=== PATIENT | male | born 1990 | race Caucasian/White ===

== ENCOUNTER 2016-11-13 23:00 | Inpatient (IN) | payer OTHER ==
[~2016-11-13] VITALS: Ht 177.8 cm; Wt 63.0 kg
--- NOTE | ~2016-11-13 | PN ---
Unit #: [id number] #: [id number] Patient: LARRY VILLAFANA [id number] [facility] [address] [place] [address] [id number] I MR#: [id number] NAME: LARRY VILLAFANA ROOM: 81 Age: 26 Sex: M Admission Date: 11/14/2016 : 1990 Attending Physician: Rajinder Crockett M.D. Admitting Physician: Rajinder Crockett M.D. Primary Care Physician: Primary Care Physician Betsy GOMEZ NOTES DATE November 15, 2016 DISCUSSION Mr. Villafana is a 26-year-old white male, with history of substance abuse and mood disorder, who was seen today and chart was reviewed and the case was discussed with the staff. He was lying in bed and reports not feeling good and has been complaining of persistent anxiety and depression, and disturbed sleep, restless, muscle aches and pains. Meanwhile, he has been taking the medications and tolerating them fairly well with no reported side effects. MENTAL STATUS EXAMINATION Young white male, who was casually dressed with fair personal hygiene and appears to be in no acute distress or discomfort. He was awake and alert with intact orientation. His mood is anxious with a congruent affect. His speech is slow and goal-directed. He denies any suicidal or homicidal ideations, and also denies any auditory or visual hallucinations. His insight and judgment remain slightly impaired. TREATMENT PLAN 1. We will continue him on his current medications and treatment protocol, and will monitor his response to the medications, and make further adjustments as needed. 2. We will continue to followup. Dictated by... Tanisha Saleh/karlene TD: 11/16/2016 05:49 JOB #: [id number] Unit #: [id number] #: [id number] Patient: LARRY VILLAFANA KAREL GOMEZ NOTES Page 1 of 1 X Rajinder Crockett MD PROGRESS NOTE
--- NOTE | ~2016-11-13 | PN ---
Unit #: [id number] #: [id number] Patient: LARRY VILLAFANA [id number] [facility] [address] [place] [address] [id number] I MR#: [id number] NAME: LARRY VLILAFANA ROOM: 81 Age: 26 Sex: M Admission Date: 11/14/2016 : 1990 Attending Physician: Rajinder Crockett M.D. Admitting Physician: Rajinder Crockett M.D. Primary Care Physician: Primary Care Physician Betsy VINSON PROGRESS NOTES DATE OF SERVICE 11/16/2016 DISCUSSION Mr. Villafana is a 26-year-old white male with substance abuse and mood disorder who was seen today. Chart was reviewed and case was discussed with the staff. He has been anxious, withdrawn, and rather seclusive to himself. Meanwhile, he has been cooperative with the treatment recommendations and has been taking the medications and tolerating them fairly well with no reported side effects. MENTAL STATUS EXAMINATION Young white male who is casually dressed with fair personal hygiene, appears to be in no acute distress or discomfort. He was awake and alert on interaction with intact orientation. His mood is anxious with congruent affect. Speech is slow and goal-directed. He denies any suicidal or homicidal ideations. His insight and judgment remain slightly impaired. TREATMENT PLAN 1. We will continue him on his current medications and treatment protocol. We will monitor his response to the medications and make further adjustments as needed. 2. We will continue to follow up. Dictated by... Tanisha Saleh/georgi TD: 11/16/2016 12:44 JOB #: [id number] Unit #: [id number] #: [id number] Patient: LARRY VILLAFANA KAREL PROGRESS NOTES Page 1 of 1 X Rajinder Crockett MD PROGRESS NOTE
--- NOTE | ~2016-11-13 | PN ---
Unit #: [id number] #: [id number] Patient: LARRY VILLAFANA [id number] [facility] [address] [place] [address] [id number] I MR#: [id number] NAME: LARRY VILLAFANA ROOM: 81 Age: 26 Sex: M Admission Date: 11/14/2016 : 1990 Attending Physician: Rajinder Crockett M.D. Admitting Physician: Rajinder Crockett M.D. Primary Care Physician: Primary Care Physician Betsy GOMEZ NOTES DATE OF SERVICE 11/17/2016 DISCUSSION Mr. Villafana is a 26-year-old white male with substance abuse and mood disorder who was seen today. Chart was reviewed and case was discussed with the staff. He appears to be doing somewhat better and has been able to come out of his room and interacting with peers. Meanwhile, he has been taking the medications and tolerating them fairly well with no reported side effects. MENTAL STATUS EXAMINATION Young white male who is casually dressed with fair personal hygiene, appears to be in no acute distress or discomfort. He was awake and alert on interaction with intact orientation. His mood is anxious with a congruent affect. He denies any suicidal or homicidal ideation. His insight and judgment remain slightly impaired. TREATMENT PLAN 1. We will continue him on his current medications and treatment protocol. We will monitor his response to the medications and make further adjustments as needed. 2. We will continue to follow up. Dictated by... Tanisha Saleh/bzg TD: 11/17/2016 11:39 JOB #: [id number] Unit #: [id number] #: [id number] Patient: LARRY VILLAFANA KAREL PROGRESS NOTES Page 1 of 1 X Rajinder Crockett MD PROGRESS NOTE
--- NOTE | ~2016-11-13 | A ---
[facility] Nutrition Therapy DATE: 11/15/16 Patient: LARRY VILLAFANA Physician: CHELLE Address: [address] [place] [address] Room/Bed: [address], Zip: [place] [address] Admit Date: 11/14/16 Date of : [birth year] Height: 5 10 Weight: [phone] NUTRITIONAL ASSESSMENT: REASON: UNINTENTIONAL WEIGHT LOSS PATIENT ADMITTED FOR HEROIN AND METH DETOX, AND SI PMH: ASTHMA Anthropometrics: HT: 70", WT: 139#, BMI: 19.9, %IBW: 84 Labs: 11/15/16- NUTRITIONAL LABS WNL Meds: VISTARIL, DESYREL, REMERON, MVI, DETOX PROTOCOL Assessment: PATIENT IS A 26 Y/O MALE ADMITTED FOR DETOX AND SI. PATIENT IS CURRENTLY UNEMPLOYED, HOMELESS, CHEWS TOBACCO DAILY, AND HAS DAILY HEROIN, METH, AND XANAX ABUSE. UPON ADMIT PATIENT STATED A POOR APPETITE WITH A 25# WEIGHT LOSS OVER LAST SEVERAL MONTHS, AND HE HAS NOT BEEN SLEEPING. NURSING REPORTS [employer] PO INTAKES. THERE IS NO WEIGHT HX RECORDED IN [employer]. PATIENT HAS NOT HAD ANY PREVIOUS PSYCH OR CHEMICAL DEPENDENCY TREATMENT. PATIENT'S BMI IS WITHIN A HEALTHY RANGE AND HIS NUTRITIONAL LABS ARE ALL WNL. THERE ARE NO SKIN OR GI ISSUES NOTED ATT. PATIENT WAS TAKING AN ANTIBIOTIC PRIOR TO ADMIT FOR A SORE ON HIS FOOT. HE IS CURRENTLY ON A REGULAR DIET. THIS RD SUSPECTS WEIGHT AND APPETITE WILL STABILIZE AND POSSIBLY INCREASE FOLLOWING DETOX. HE IS CURRENTLY ON REMERON, WHICH MAY CAUSE AN INCREASED APPETITE. Dx: UNINTENTIONAL WEIGHT LOSS R/T CURRENT CONDITION, DRUG USE AEB SELF-REPORTED WEIGHT LOSS AND DECREASED APPETITE, NUTRITIONAL RISK POINT Intervention: REGULAR DIET, MEDS PER MD, DETOX, PSYCH Monitoring, Evaluation and Goals: 1. ADEQUATE PO INTAKES >50% OF MEALS 2. CORRECT MICRO/MACRO NUTRIENT DEFICIENCIES 3. WEIGHT; PREVENT WEIGHT LOSS MONITOR: WEIGHTS, LABS, PO/FLUID INTAKES Recommendations: 1. CONTINUE REGULAR DIET TOLERATED. OFFER SNACKS BETWEEN MEALS. IF PATIENT HAS C/O HUNGER PLEASE ORDER LARGER PORTIONS AND RD WILL APPROVE 2. ENCOURAGE ADEQUATE PO AND FLUID INTAKES [facility] Nutrition Therapy DATE: 11/15/16 Patient: LARRY VILLAFANA Physician: CHELLE Address: [address] [place] [address] Room/Bed: [address], [facility], Zip: [place] [address] Admit Date: 11/14/16 Date of : [birth year] Height: 5 10 Weight: [phone] 3. IF PO INTAKES ARE BELOW 50% OF MEALS PLEASE ORDER ENSURE BID 4. OBTAIN WEIGHTS ROUTINELY (EVERY 3-4 DAYS) RD TO F/U PER PROTOCOL AND PRN R/T PATIENT MILDLY COMPROMISED Respectfully, MARY MACDONALD RD, LD [facility] cc: client file
--- NOTE | ~2016-11-13 | DS ---
Unit #: [id number] #: [id number] Patient: LARRY VILLAFANA [id number] [facility] [address] [place] [address] [id number] I MR#: [id number] NAME: LARRY VILLAFANA ROOM: P180 Age: 26 Sex: M Admission Date: 11/14/2016 : 1990 Discharge Date: 11/18/2016 Attending Physician: Rajinder Crockett M.D. Primary Care Physician: Primary Care Physician No DISCHARGE SUMMARY IDENTIFYING DATA Mr. Castillo is a 26-year-old, single, white male, who is a resident of [place], [place] and was self-referred to the hospital on a voluntary basis. DISCHARGE DIAGNOSES Psychiatric: Major depressive disorder, recurrent, moderate, without psychotic features; opioid dependence, moderate and acute withdrawals. Medical: None. Stressors: Mild psychosocial stressors. HISTORY OF PRESENT ILLNESS Please see initial psychiatric evaluation for details. PAST PSYCHIATRIC HISTORY Please see initial psychiatric evaluation for details. PAST MEDICAL HISTORY Please see initial psychiatric evaluation for details. HOSPITAL COURSE The patient [facility] and was oriented to the hospital environment. Routine p.r.n. medications were initiated, and he was started back on his home medications and medications were adjusted and detox protocol was maintained and Remeron was also given to help him with depression. He was initially seen to be anxious, withdrawn, and seclusive to himself and was going through some acute withdrawal symptoms; however, no complications were noticed and the patient was cooperative with treatment recommendations and as such, was able to come out of the detox without any issues and therefore, it was decided the patient will be discharged home and will continue treatment on an outpatient basis. DISCHARGE MEDICATIONS Remeron 15 mg at bedtime for depression. DISCHARGE CONDITION Stable. PROGNOSIS Fair. Unit #: [id number] #: [id number] Patient: LARRY VILLAFANA Dictated by... Tanisha Saleh/dasia TD: 11/18/2016 07:01 JOB #: [id number] DISCHARGE SUMMARY Page 1 of 1 X Rajinder Crockett MD DISCHARGE SUMMARY
--- NOTE | ~2016-11-13 | HP ---
Unit #: [id number] #: [id number] Patient: LARRY VILLAFANA [id number] [place] [address] [id number] I MR#: [id number] NAME: LARRY VILLAFANA ROOM: P181 Age: 26 Sex: M Admission Date: 11/14/2016 : 1990 Attending Physician: Rajinder Crockett M.D. Admitting Physician: Rajinder Crockett M.D. Primary Care Physician: Primary Care Physician No HISTORY AND PHYSICAL HISTORY OF PRESENT ILLNESS The patient is a 26-year-old male admitted to [facility] on 11/13/2016 for heroin and methamphetamine abuse and suicidal ideations. PAST MEDICAL HISTORY Drug abuse. PAST SURGICAL HISTORY None noted. SOCIAL HISTORY He is unemployed and homeless, chews tobacco, uses a 1/2 gram of heroin daily and methamphetamine and Xanax on a daily basis. FAMILY MEDICAL HISTORY Noncontributory. ALLERGIES No known drug allergies. CURRENT MEDICATIONS Doxycycline and Ventolin. REVIEW OF SYSTEMS CONSTITUTIONAL: No fever or chills. HEENT: Denies any sore throat, ear pain or runny nose. CARDIOVASCULAR: Denies chest pain, irregular heart rhythm or palpitations. CHEST: Denies shortness of breath or cough. No hemoptysis. GASTROINTESTINAL: Denies nausea, vomiting, diarrhea or chronic constipation. ENDOCRINE: Denies history of increased thirst or urination. No recent significant weight loss or gain. GENITOURINARY: Denies dysuria, frequency, or hematuria. SKIN: Denies any rashes. HEMATOLOGIC: Denies history of increased bleeding or bruising. MUSCULOSKELETAL: Denies any hot, swollen joints. No generalized muscle pain. NEUROLOGIC: Denies problems with vision or speech. No frequent, severe headaches. No numbness, tingling or weakness in any extremities. Denies loss of bladder or bowel control. PHYSICAL EXAM GENERAL: He is awake, alert and oriented in no acute distress. Unit #: [id number] #: [id number] Patient: LARRY VILLAFANA VITAL SIGNS: Temperature 98.6, heart rate 89, respiration 18, blood pressure 123/89. HEIGHT: 5'10". WEIGHT: 19 pounds. SKIN: Warm and dry without rash or lesion. HEENT: Normocephalic. TMs not viewed. Oral and nasal passages clear. Conjunctivae clear. PERRLA. EOMs intact. NECK: Supple without lymphadenopathy or thyromegaly. HEART: Regular rate and rhythm without murmur. LUNGS: Clear. ABDOMEN: Soft, nontender. : Not done. EXTREMITIES: No evidence of cyanosis, clubbing or edema. Moves all without focal deficit. NEUROLOGICAL: Grossly within normal limits. Cranial Nerves: II: Visual martinez are intact. III, IV AND : Extraocular movements are intact. Pupils are equal, round and reactive to light. V: Facial sensation is grossly normal. VII: Facial movements and expression are normal. VIII: Auditory acuity grossly intact. IX, X: Uvula is midline. Phonation is normal. XI: Patient shrugs shoulders and turns head normally. XII: Tongue protrudes in the midline. Sensory and Motor Function: Sensory and motor sensation is grossly normal. Motor: moves all extremities well. IMPRESSION 1. Psychiatric admission. 2. Polysubstance abuse. RECOMMENDATIONS Psychiatric per psychiatrist. MEDICAL: No contraindication to participate in facility activities. MEDICAL PROGNOSIS Good. MEDICAL CONDITION Stable. Dictated by... Luigi Winters/keyur TD: 11/15/2016 00:48 JOB #: [id number] Unit #: [id number] #: [id number] Patient: LARRY VILLAFANA HISTORY AND PHYSICAL Page 1 of 1 X VITALY FORRESTER APRN HISTORY AND PHYSICAL
--- NOTE | ~2016-11-13 | PA ---
Unit #: [id number] #: [id number] Patient: LARRY MOSS [id number] [facility] [address] [place] [address] [id number] MR#: [id number] NAME: LARRY MOSS ROOM: P181 Age: 26 Sex: M Admission Date: 11/14/2016 : 1990 Date of Assessment: 11/14/2016 Attending Physician: Rajinder Crockett M.D. Admitting Physician: Rajinder Crockett M.D. Primary Care Physician: Primary Care Physician No PSYCHIATRIC ASSESSMENT DATE OF SERVICE 11/14/2016. IDENTIFYING DATA Mr. Moss is a 26-year-old single white male, who is a resident of [place], [place], and was self-referred to the hospital on a self-referral basis. CHIEF COMPLAINT "I've been using heroin." HISTORY OF PRESENT ILLNESS Mr. Moss is a 26-year-old white male, who was brought to the hospital stating that he had been snorting half a gram of heroin on a daily basis and last use was today and he came from [place] to get into sober living and failed the drug test earlier and that he is able to go back when he is clean. He reports he snorted a line of methamphetamine 2 days ago and that he took 2 mg of Xanax yesterday and reports having suicidal ideation with a plan to cut his wrist and does endorse increasing depression, anxiety, irritability, psychomotor retardation, and feelings of hopelessness and helplessness and was seen to be danger to self and others and as such, a recommendation for inpatient level of care for safety and stabilization was made and the patient was transferred to us. SUBSTANCE ABUSE HISTORY The patient reports history of opioids, methamphetamine, benzodiazepine abuse, and currently opioids, particularly heroin has been his drug of choice. PAST PSYCHIATRIC HISTORY The patient has not had any prior inpatient or outpatient psychiatric treatment. Review of the medical records indicate currently he is not active in any treatment program and is not seeing a psychiatrist and is not taking any psychotropic medications. PAST MEDICAL HISTORY Asthma. ALLERGIES No known medication allergies. PERSONAL AND SOCIAL HISTORY A 26-year-old white male, who reports that he is single, unemployed, and Unit #: [id number] #: [id number] Patient: LARRY MOSS essentially homeless and has poor social support system. MENTAL STATUS EXAMINATION Young white male, who was casually dressed with fair personal hygiene, appears to be in no acute distress or discomfort. He was awake and alert on interaction with intact orientation to time, place, and person. His mood was anxious and depressed with a congruent affect. His speech was slow and restricted in content. His thought processes were disorganized with some looseness of associations and suicidal ideations. His insight and judgment remain significantly impaired. DIAGNOSTIC IMPRESSION Psychiatric: Major depressive disorder, recurrent, moderate, without psychotic features; opioid dependence, moderate, in acute withdrawals; and benzodiazepine dependence, moderate. Medical: None. Stressors: Moderate psychosocial stressors. TREATMENT PLAN 1. The patient has presented with a history of substance abuse and mood disorder and has been decompensating and will need inpatient hospitalization for detoxification, safety, and stabilization. We will start him back on his home medications. We will adjust the medications and monitor response. 2. Supportive therapy was provided to the patient. 3. Safe, structured, and nourishing environment will be provided. ESTIMATED LENGTH OF STAY 5 to 7 days. ABILITY TO HELP SELF Limited. WILLINGNESS TO HELP SELF The patient appears to be willing to help self. STRENGTHS 1. Communicative. 2. Cooperative. PROBLEMS 1. Chronic chemical dependency. 2. Poor social support system. DISCHARGE CRITERIA This will be contingent upon the patient's ability to go through detox without having any significant withdrawal symptoms as well as his ability to stay safe to himself, particularly after discharge from the hospital. Dictated by... Tanisha Saleh/dasia TD: 11/14/2016 19:29 JOB #: [id number] Unit #: [id number] #: [id number] Patient: LARRY MOSS PSYCHIATRIC ASSESSMENT Page 1 of 1 X Rajinder Crockett MD PSYCHIATRIC ASSESSMENT
[2016-11-15 09:40] LABS: BASOPHIL% 0.6 % (0-2.5); DIFF IND NO; EOSINOPHIL# 0.4 X10e3 (0-0.7); EOSINOPHIL% 4.5 % (0.0-7.0); HEMATOCRIT 48.6 % (38.0-50.0); HEMOGLOBIN 16.6 gm/dL (13.0-16.0); LYMPHOCYTE# 3.3 X10e3 (1.0-3.5); LYMPHOCYTE% 42.2 % (17.0-45.0); MEAN CELL VOLUME 86.9 FL (83-96); MEAN CORPUSCULAR HEMOGLOBIN 29.7 PG (28-34); MEAN CORPUSCULAR HGB CONC 34.2 g/dL (30-36); MEAN PLATELET VOLUME 8.9 FL (6.5-11.5); MONOCYTE# 0.8 X10e3 (0-1.0); MONOCYTE% 9.6 % (3.0-12.0); NEUTROPHIL# 3.4 X10e3 (1.5-7.1); NEUTROPHIL% 43.1 % (40-75); PLATELET COUNT 293 X10e3 (140-420); RED CELL DISTRIBUTION WIDTH 13.3 % (11.0-15.5); WHITE BLOOD COUNT 7.9 X10e3 (4.0-10.5)
[2016-11-15 09:46] LABS: URINE APPEARANCE CLEAR; URINE BILIRUBIN NEG (NEG); URINE BLOOD NEG (NEG); URINE COLOR YELLOW; URINE GLUCOSE NEG (NEG); URINE KETONE NEG (NEG); URINE LEUKOCYTE ESTERASE NEG (NEG); URINE NITRATE NEG (NEG); URINE PH 5.5 (5-8); URINE PROTEIN 1+ (NEG); URINE SPECIFIC GRAVITY 1.029 (1.003-1.035); URINE UROBILINOGEN 0.2 MG/DL (NEG)
[2016-11-15 09:48] LABS: U HYALINE CASTS AUWI 0-2 /[LPF]; URBCS1 AUWI 0-2 /[HPF] (0-2); URINE BACTERIA AUWI NEG (NEGATIVE); URINE SQUAMOUS EPITHELIAL CELL NONE SEEN /[HPF]; UWBCS1 AUWI 0-2 (0-5)
[2016-11-15 09:49] LABS: ALBUMIN SERUM 4.3 g/dL (3.5-5.0); BILIRUBIN,TOTAL 1.2 mg/dL (0.2-2.0); BUN/CREATININE RATIO 21.25; CALCIUM SERUM 9.7 mg/dL (8.4-10.2); CREATININE SERUM 0.8 mg/dL (0.6-1.4); GLOM FILT RATE Estimated 125.1 mL/min (>60); POTASSIUM 4.1 mmol/L (3.5-5.1)
[2016-11-15 10:13] LABS: AMPHETAMINE POS (NEG); BARBITURATES NEG (NEG); BENZODIAZEPINES POS (NEG); COCAINE NEG (NEG); MARIJUANA NEG (NEG); OPIATES POS (NEG); TRICYCLIC ANTIDEPRESSANTS NEG (NEG); U METHADONE NEG (NEG)
== END 2016-11-18 09:51 | DRG 885 ==
LOC: P1E 11-14 02:41
PROVIDERS: Psychiatry & Neurology Psychiatry
PROC: HZ2ZZZZ Detoxification Services for Substance Abuse Treatment (ICD-10-PCS; principal; 2016-11-14)
DX: F33.1 Major depressive disorder, recurrent, moderate (principal); F13.20 Sedative, hypnotic or anxiolytic dependence, uncomplicated; F11.23 Opioid dependence with withdrawal; Z59.0 Homelessness; J45.909 Unspecified asthma, uncomplicated
CPT/HCPCS: 80053; 80307; 81003; 85025